=== PATIENT | female | born 1975 ===

== ENCOUNTER 2018-11-09 20:50 | Inpatient (IN) | payer OTHER ==
--- NOTE | 2018-11-10 02:07 | Emergency Department Report ---
ED Dysuria HPI - HPI Time Seen by Provider: 11/10/18 01:27 Duration: 1 Day Location of Discomfort: Flank Severity: Moderate Symptoms: Dysuria: No, Frequency: No, Suprapubic Pain: No, Flank Pain: Yes, Fever: Yes, Hematuria: No, Abdominal Pain: Yes, Previous UTI's: No Other History: Patient is a female who comes to the ER complaining of left flank pain and fever since yesterday. She did not take her temperature but her family reports that she has had chills. On arrival to the ER patient had a temperature of 100.2 she had a heart rate of 135 and her systolic pressure was in the 90s. Patient was later admitted to [facility] with the above findings and labs and CT have been ordered. Patient denies any medical history. She denies taking any medicines on a daily basis at home. She has no known drug allergies. Pale and diaphoretic on encounter in [facility]. ED Review of Systems ROS: Stated complaint: Other details as noted in HPI Comment: All other systems reviewed and negative ED Past Medical Hx - Past Medical History Previous Medical History?: No - Surgical History Hx Cholecystectomy: Yes Additional Surgical History: choley; previous lung surgery - Social History Smoking Status: Never Smoker Substance Use Type: None Dysuria Exam - Exam General: Vital signs noted. No distress. Alert and acting appropriately. WDWN patient . pale VS per RN flow sheet Alert and oriented to person, place and time. S1-S2. No S3 or S4. No systolic or diastolic murmur. No JVD. No pitting edema. Lungs clear to auscultation bilaterally anteriorly and posteriorly. Abdomen soft nontender bowel sounds x4 CVA tenderness on right Moves all extremities well. Mood and affect appropriate. Exam: Yes Moist Mucous Membranes, Yes CVA Tenderness (right), No Abdominal Tenderness, No Rigidity or Guarding ED Course - Reevaluation(s) Reevaluation #1: 11/10/18 triage vs 2049 97/55, 135,18, 100.2 motrin in triage denies home meds UA 0115 prot 100 blood mod leuk large cloudy 1.023 rbc 6 wbc 760 with clumping co flank pain 02/0811/10/18 04:05 HR now 90; pain improving, now 12/08- was 02/08 ED Medical Decision Making - Lab Data Result diagrams: 11/10/18 01:37 06/12/19 01:37 - Radiology Data Radiology results: report reviewed, image reviewed - Medical Decision Making 0134 urine preg neg Labs 11/10/18 11/10/18 01:37 01:37 WBC 24.2 H RBC 3.97 Hgb 11.5 Hct 33.9 MCV 85 MCH 29 MCHC 34 RDW 14.7 Plt Count 233 Sodium 131 L Potassium 3.4 L Chloride 92.4 L Carbon Dioxide 23 Anion Gap 19 BUN 21 H Creatinine 1.3 H Estimated GFR 45 BUN/Creatinine Ratio 16 Glucose 146 H Calcium 8.6 REFER TO DOWN TIME RECORDS FOR ADDITIONAL DOCUMENTATION [address] [facility]shaw [facility]- Dr Velasquez contacted for consultation. Will keep NPO- admit to [facility] Wang notified of patient. Pt is getting her 2nd l NS, she has had zofran and dilaudid for pain. - Differential Diagnosis ro pylo; ro k stone; ro acute abd Critical care attestation.: If time is entered above; I have spent that time in minutes in the direct care of this critically ill patient, excluding procedure time. ED Disposition Clinical Impression: PUNEET (acute kidney injury), Hypokalemia, Kidney stone, Pyelonephritis Disposition: -09 OP ADMIT IP TO THIS HOSP Is pt being admited?: Yes Does the pt Need Aspirin: No Condition: Stable Time of Disposition: 04:32
[2018-11-10 02:23] LABS: Calcium 8.6 mg/dL (8.4-10.2)
[2018-11-10 02:45] LABS: Hematocrit 33.9 % (30.3-42.9); Hemoglobin 11.5 gm/dl (10.1-14.3); Mean Corpuscular HGB Conc 34 % (30-34); Mean Corpuscular Volume 85 fl (79-97); Platelet Count 233 K/mm3 (140-440); Red Blood Count 3.97 M/mm3 (3.65-5.03); Red Cell Distribution Width 14.7 % (13.2-15.2)
[2018-11-10] MEDS ORDERED: TORADOL IV ONE (02:46)
[2018-11-10] MEDS ORDERED: ZOFRAN IV ONE ×2 (02:46→04:25)
[2018-11-10] MEDS ORDERED: DILAUDID IV ONE (02:46)
[2018-11-10] MEDS ORDERED: NACL 0.9% 1000 ML 1,000 ML IV ONE ×2 (02:46→04:28)
[2018-11-10] MEDS ORDERED: K-DUR PO ONE (04:25)
[2018-11-10] MEDS ORDERED: ROCEPHIN/NS 1 GM/50 ML 1 GM/50 ML BAG IV ONE (04:28)
--- NOTE | 2018-11-10 04:46 | Cat Scan Report ---
PROCEDURE: CT ABDOMEN PELVIS WO CON TECHNIQUE: Routine axial imaging was obtained of the abdomen and pelvis without oral or IV contrast. Sagittal and coronal reconstructions were reviewed. HISTORY: l side pain COMPARISONS: None FINDINGS: Imaging through the lung bases reveals opacification of the right hemithorax with shift of the heart toward the right side. The left lung is clear. The gallbladder has been removed. The biliary tree appears normal. The liver and pancreas appear norm al. The adrenal glands and spleen appear normal. There is moderate right-sided hydronephrosis with perinephric stranding secondary to a partially obst ructing 8.1 mm Stone just below the right renal pelvis. The left kidney shows no evidence of stones o r hydronephrosis. The bowel loops reveal multiple nondistended fluid-filled loops of ileum without tr ansition point. The colon appears normal. The appendix is not enlarged. There is no evidence of free fluid or adenopathy. In the pelvis the uterus and bladder appear normal. The skeletal structures do n ot show acute changes. IMPRESSION: Moderate right-sided hydronephrosis with perinephric stranding secondary to a partially obstructing 8 .1 mm Stone just below the right renal pelvis. No additional renal stones identified. No evidence of appendicitis. Cholecystectomy. Multiple nondistended fluid-filled loops of small bowel which may represent a reactive ileus. Opacification of the right hemithorax with chronic volume loss.. This document is electronically signed by Cameron Nelson MD., November 10 2018 04:44:14 AM ET
[2018-11-10 05:36] LABS: HCG Qualitative,Urine Negative (Negative)
[2018-11-10 05:37] LABS: Bacteria,Urine 2+ /HPF (Negative); Bilirubin,Urine NEG (Negative); Blood,Urine MOD (Negative); Color,Urine Amber (Yellow); Mucus,Urine FEW /HPF; Urobilinogen,Urine < 2.0 mg/dL (<2.0)
[2018-11-10] MEDS ORDERED: SODIUM CHLORIDE FLUSH SYRINGE 10 ML IV PRN (06:13)
[2018-11-10] MEDS ORDERED: TYLENOL PO PRN (06:13)
[2018-11-10] MEDS ORDERED: ZOFRAN IV PRN (06:13)
[2018-11-10 06:18] LABS: WBC,Urine > 182.0 /HPF (0.0-6.0)
--- NOTE | 2018-11-10 06:20 | History and Physical Report ---
History of Present Illness Date of examination: 11/10/18 Date of admission: November 10 2018 Chief complaint: Left flank pain due for 2 days associated with chills History of present illness: 43-year-old female with no significant past medical history comes in fo r fever and chills. Also left flank pain since yesterday. Pain is about 10 on a scale of 1-10. No similar prior episodes. Patient has dysuria. No history of kidney stones in the past. Pain is sharp in nature. No exacerbating or relieving factors. Past Medical History Previous Medical History?: No Surgical History Hx Cholecystectomy: Yes Additional Surgical History: choley; previous lung surgery Social History Smoking Status: Never Smoker Substance Use Type: None Family history unremarkable Review of Systems ROS: Stated complaint: Other details as noted in HPI Comment: All other systems reviewed and negative Medications and Allergies Allergies Allergy/AdvReac Type Severity Reaction Status Date / Time No Known Allergies Allergy Verified 11/10/18 06:16 Active Meds: Active Medications Acetaminophen (Tylenol) 650 mg PO Q4H PRN PRN Reason: Pain MILD(1-3)/Fever >100.5/LEE Famotidine (Pepcid) 20 mg IV BID JOSHUA Hydromorphone HCl (Dilaudid) 0.5 mg IV Q3H PRN PRN Reason: Pain , Severe (7-10) Dextrose/Sodium Chloride (D5ns) 1,000 mls @ 100 mls/hr IV DIRECT JOSHUA Ondansetron HCl (Zofran) 4 mg IV Q8H PRN PRN Reason: Nausea And Vomiting Sodium Chloride (Sodium Chloride Flush Syringe 10 Ml) 10 ml IV BID JOSHUA Sodium Chloride (Sodium Chloride Flush Syringe 10 Ml) 10 ml IV PRN PRN PRN Reason: LINE FLUSH Exam - Constitutional General appearance: Present: mild distress, well-nourished - EENT Eyes: Present: PERRL ENT: hearing intact, clear oral mucosa - Neck Neck: Present: supple, normal ROM - Respiratory Respiratory effort: normal Respiratory: bilateral: CTA - Cardiovascular Heart rate: 80 Rhythm: regular Heart Sounds: Present: S1 & S2. Absent: rub, click - Extremities Extremities: no ischemia, pulses intact, pulses symmetrical, No edema Peripheral Pulses: within normal limits - Abdominal General gastrointestinal: Present: soft, non-tender, non-distended, normal bowel sounds Female genitourinary: Present: normal - Rectal Rectal Exam: deferred - Integumentary Integumentary: Present: clear, warm, dry - Musculoskeletal Musculoskeletal: gait normal, strength equal bilaterally - Psychiatric Psychiatric: appropriate mood/affect, intact judgment & insight - Neurologic Neurologic: CNII-XII intact, moves all extremities - Allied Health Allied health notes reviewed: nursing, case management Results - Labs CBC & Chem 7: 11/10/18 01:37 11/10/18 01:37 Labs: Laboratory Last Values WBC 24.2 K/mm3 (4.5-11.0) H 11/10/18 01:37 RBC 3.97 M/mm3 (3.65-5.03) 11/10/18 01:37 Hgb 11.5 gm/dl (10.1-14.3) 11/10/18 01:37 Hct 33.9 % (30.3-42.9) 11/10/18 01:37 MCV 85 fl (79-97) 11/10/18 01:37 MCH 29 pg (28-32) 11/10/18 01:37 MCHC 34 % (30-34) 11/10/18 01:37 RDW 14.7 % (13.2-15.2) 11/10/18 01:37 Plt Count 233 K/mm3 (140-440) 11/10/18 01:37 Sodium 131 mmol/L (137-145) L 11/10/18 01:37 Potassium 3.4 mmol/L (3.6-5.0) L 11/10/18 01:37 Chloride 92.4 mmol/L (98-107) L 11/10/18 01:37 Carbon Dioxide 23 mmol/L (22-30) 11/10/18 01:37 19 mmol/L 11/10/18 01:37 BUN 21 mg/dL (7-17) H 11/10/18 01:37 1.3 mg/dL (0.7-1.2) H 11/10/18 01:37 Estimated GFR 45 ml/min 11/10/18 01:37 16 % 11/10/18 01:37 Glucose 146 mg/dL (65-100) H 11/10/18 01:37 Calcium 8.6 mg/dL (8.4-10.2) 11/10/18 01:37 Ur Reducing Substances Not Reportable 11/10/18 02:27 Neg (Negative) 11/10/18 02:27 Not Reportable 11/10/18 02:27 15.0 /HPF (0.0-6.0) 11/10/18 02:27 U Epithel Cells (Auto) 9.0 /HPF (0-13.0) 11/10/18 02:27 Urine HCG, Qual Negative (Negative) 11/10/18 02:27 Short CBC 11/10/18 Range/Units 01:37 WBC 24.2 H (4.5-11.0) K/mm3 Hgb 11.5 (10.1-14.3) gm/dl Hct 33.9 (30.3-42.9) % Plt Count 233 (140-440) K/mm3 BMP 11/10/18 01:37 Sodium 131 L Potassium 3.4 L Chloride 92.4 L Carbon Dioxide 23 BUN 21 H Creatinine 1.3 H Glucose 146 H Calcium 8.6 Urine 11/10/18 Range/Units 02:27 Urine Color Alanis (Yellow) Urine pH 5.0 (5.0-7.0) Ur Specific [place] 1.023 (1.003-1.030) Urine Protein 100 mg/dl (Negative) mg/dL Urine Glucose (UA) Neg (Negative) mg/dL - Imaging and Cardiology CT scan - abdomen: report reviewed Imaging and Cardiology: CT abdomen IMPRESSION: Moderate right-sided hydronephrosis with perinephric stranding secondary to a partially obstructing 8.1 mm Stone just below the right renal pelvis. No additional renal stones identified. No evidence of appendicitis. Cholecystectomy. Multiple nondistended fluid-filled loops of small bowel which may represent a reactive ileus. Opacification of the right hemithorax with chronic volume loss.. Assessment and Plan Advance Directives: Yes (full code) VTE prophylaxis?: Chemical Plan of care discussed with patient/family: Yes - Patient Problems (1) SIRS (systemic inflammatory response syndrome) Current Visit: Yes Status: Acute Plan to address problem: Clinical picture consistent with systemic inflammatory response syndrome Patient initiated on IV fluids and IV Rocephin pending urine cultures and blood cultures (2) Kidney stone Current Visit: Yes Status: Acute Plan to address problem: Large right kidney stone--8.1 mm causing hydronephrosis on the right side Urology consulted and informed Dr. Velasquez to see the patient this morning and may take her over to the opera ting room (3) Pyelonephritis Current Visit: Yes Status: Acute Plan to address problem: possible pyelonephritis Patient has flank pain on the left side but the kidney stone is on the right side (4) PUNEET (acute kidney injury) Current Visit: Yes Status: Acute Plan to address problem: IV fluids for now ATN versus vasomotor nephropathy (5) Hypokalemia Current Visit: Yes Status: Acute Plan to address problem: Supplemented (6) DVT prophylaxis Current Visit: Yes Status: Acute Plan to address problem: on SCDs and GI prophylaxis
[2018-11-10] MEDS ORDERED: KCL 10MEQ/100ML 10 MEQ/100 ML BAG IV SCH (07:00)
[2018-11-10] MEDS: DILAUDID IV PRN ×3 (09:15→23:56)
[2018-11-10] MEDS ORDERED: TYLENOL ONE (09:36)
[2018-11-10] MEDS: ROCEPHIN/NS 2 GM/100 ML 2 GM/100 ML BAG IV SCH (09:47)
--- NOTE | 2018-11-10 10:18 | Consultation ---
History of Present Illness - Reason for Consult Consult date: 11/10/18 right nephrolithiasis - History of Present Illness Patient presenting with a history of flank pain was noted to have an brendan roximately 8 mm stone at the UVJ. She has mild right hydronephrosis. 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) Social history: no significant social history Family history: no significant family history Medications and Allergies Allergies Allergy/AdvReac Type Severity Reaction Status Date / Time No Known Allergies Allergy Verified 11/10/18 06:16 Active Meds: Active Medications Acetaminophen (Tylenol) 650 mg PO Q4H PRN PRN Reason: Pain MILD(1-3)/Fever >100.5/LEE Last Admin: 11/10/18 09:35 Dose: 650 mg Documented by: Famotidine (Pepcid) 20 mg IV BID JOSHUA Hydromorphone HCl (Dilaudid) 0.5 mg IV Q3H PRN PRN Reason: Pain , Severe (7-10) Last Admin: 11/10/18 09:15 Dose: 0.5 mg Documented by: Dextrose/Sodium Chloride (D5ns) 1,000 mls @ 100 mls/hr IV DIRECT JOSHUA Ceftriaxone Sodium (Rocephin/Ns 2 Gm/100 Ml) 2 gm in 100 mls @ 200 mls/hr IV Q24HR JOSHUA; Protocol Last Admin: 11/10/18 09:47 Dose: Not Given Documented by: Ondansetron HCl (Zofran) 4 mg IV Q8H PRN PRN Reason: Nausea And Vomiting Sodium Chloride (Sodium Chloride Flush Syringe 10 Ml) 10 ml IV BID JOSHUA Sodium Chloride (Sodium Chloride Flush Syringe 10 Ml) 10 ml IV PRN PRN PRN Reason: LINE FLUSH Review of Systems ROS unobtainable: due to mental status Exam - Constitutional Vitals: Temp Pulse Resp BP Pulse Ox 103.2 F H 121 H 20 123/68 11/10/18 09:32 11/10/18 09:03 11/10/18 09:03 11/10/18 09:03 General appearance: Present: no acute distress - EENT Eyes: Present: EOM intact ENT: hearing intact - Neck Neck: Present: supple, normal ROM - Respiratory Respiratory effort: normal - Extremities Extremities: no ischemia - Abdominal General gastrointestinal: Present: deferred - Rectal Rectal Exam: deferred - Psychiatric Psychiatric: cooperative Results - Labs CBC & Chem 7: 11/10/18 01:37 11/10/18 01:37 Labs: Abnormal lab results 11/10/18 11/10/18 11/10/18 Range/Units 01:37 01:37 02:27 WBC 24.2 H (4.5-11.0) K/mm3 Sodium 131 L (137-145) mmol/L Potassium 3.4 L (3.6-5.0) mmol/L Chloride 92.4 L (98-107) mmol/L BUN 21 H (7-17) mg/dL Creatinine 1.3 H (0.7-1.2) mg/dL Glucose 146 H (65-100) mg/dL Urine WBC (Auto) > 182.0 H (0.0-6.0) /HPF - Imaging and Cardiology CT scan - abdomen: image reviewed CT scan - chest: image reviewed Assessment and Plan Patient with mild right hydronephrosis and minimal amounts of perinephric stranding. The patient will be scheduled for placement of a right nephrostomy tube with samples of the patient's urine sent for culture. The patient will need to be evaluated for her right endobronchial mass with complete atelectasis of her right lung additionally, CT scan demonstrates a fluid collection at the right lung base that appears to be loculated.
[2018-11-10] MEDS ORDERED: VERSED ONE (10:48)
[2018-11-10] MEDS ORDERED: SUBLIMAZE ONE (10:48)
[2018-11-10] MEDS ORDERED: XYLOCAINE 2% INFILTRATI ONE (10:49)
[2018-11-10] MEDS ORDERED: LEVAQUIN 500MG/100ML 500 MG/100 ML BAG IV ONE (10:49)
[2018-11-10] MEDS ORDERED: NACL 0.9% 500 ML IR ONE (10:49)
--- NOTE | 2018-11-10 12:00 | Operative Report ---
Operative Report Operative Report: Exam: Ultrasound and fluoroscopic guided placement of nephrostomy tube Clinical indication: Patient with the partially obstructing right UPJ stone Date: 11/10/2018 Procedure: Following an explanation of the risks, benefits and alternatives; written informed consent was obtained through the aid of an transformer coil winder. The patient was brought to the fluoroscopy suite and placed in prone position on the examination table. Initial ultrasound evaluation of the back demonstrated only minimal right hydronephrosis. The patient's right back and flank were prepped and draped in usual sterile fashion. 1% lidocaine was used for anesthesia. Under ultrasound guidance, a 15 cm 21-gauge needle was advanced into a posterior inferior calyx. A 0.018 guidewire was then advanced into the renal pelvis. The needle was exchanged for an active state transition dilator. Contrast was then injected through the dilator which documented filling of the renal calyces. Additionally, the nonobstructing stone is identified at the UPJ. The 0.018 guidewire was exchanged for a 0.035 guidewire which was advanced to the bladder. The transition dilator was exchanged for a vertebral catheter which was advanced over the guidewire to the bladder. Contrast was injected to document appropriate positioning. Following serial dilation over the guidewire under fluoroscopy, an 8 Israeli nephrostomy tube was advanced over the guidewire under fluoroscopy. The pigtail was positioned in the central aspect of the renal pelvis and the guidewire and trocar removed. Contrast was gently injected to document appropriate positioning which again demonstrated a nearly completely decompressed collecting system. Lavage of the collecting system was performed and sent for laboratory analysis. The catheter was securely fastened at the skin surface using 2-[address] to dependent drainage. Sterile dressings were then applied. The patient tolerated the procedure well. There were no immediate post procedure complications. Conscious sedation was performed under the guidance of radiologic nursing. Continuous cardiopulmonary monitoring was utilized. Impression: Ultrasound and fluoroscopic guided placement of a 8 afghan nephrostomy tube in the right renal pelvis. Only mild right hydronephrosis and a nonobstructing UPJ stone are identified. Samples of the urine were collected and sent for laboratory analysis.
[2018-11-10] MEDS ORDERED: NACL 0.9% 500 ML 500 ML IV ONE (12:44)
[2018-11-10] MEDS: D5NS 1,000 ML IV SCH (13:07)
[2018-11-10] MEDS: PEPCID IV SCH ×2 (13:08→22:12)
--- NOTE | 2018-11-10 13:08 | Consultation ---
History of Present Illness Consult date: 11/10/18 Reason for consult: other (ileus) Requesting physician: MILDRED DOBSON Chief complaint: back pain, N/V. - History of present illness History of present illness: 43yo F presents with 3 day history of "pain behind the stomach", N/V. No urinary symptoms. Would like to have something to eat and drink now. We are asked to see her due to appearance of ileus on CT. Passing flatus and having BMs as of yesterday. 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) Past Surgical History: cholecystectomy (open), (times 2) Social history: no significant social history Family history: no significant family history Medications and Allergies Allergies Allergy/AdvReac Type Severity Reaction Status Date / Time No Known Allergies Allergy Verified 11/10/18 06:16 Active Meds: Active Medications Acetaminophen (Tylenol) 650 mg PO Q4H PRN PRN Reason: Pain MILD(1-3)/Fever >100.5/LEE Last Admin: 11/10/18 09:35 Dose: 650 mg Documented by: Famotidine (Pepcid) 20 mg IV BID JOSHUA Hydromorphone HCl (Dilaudid) 0.5 mg IV Q3H PRN PRN Reason: Pain , Severe (7-10) Last Admin: 11/10/18 09:15 Dose: 0.5 mg Documented by: Dextrose/Sodium Chloride (D5ns) 1,000 mls @ 100 mls/hr IV DIRECT JOSHUA Ceftriaxone Sodium (Rocephin/Ns 2 Gm/100 Ml) 2 gm in 100 mls @ 200 mls/hr IV Q24HR JOSHUA; Protocol Last Admin: 11/10/18 09:47 Dose: Not Given Documented by: Sodium Chloride (Nacl 0.9% 500 Ml) 500 mls @ 999 mls/hr IV ONCE ONE Stop: 11/10/18 13:14 Ondansetron HCl (Zofran) 4 mg IV Q8H PRN PRN Reason: Nausea And Vomiting Sodium Chloride (Sodium Chloride Flush Syringe 10 Ml) 10 ml IV BID JOSHUA Sodium Chloride (Sodium Chloride Flush Syringe 10 Ml) 10 ml IV PRN PRN PRN Reason: LINE FLUSH Review of Systems - Constitutional fever, chills, no chronic pain - Cardiovascular no chest pain, no shortness of breath - Gastrointestinal abdominal pain, nausea, vomiting, dyspepsia/bloating, no hematemesis, no coffee ground emesis, no BRBPR, no melena, no hematochezia, no belching - Genitourinary Genitourinary: no pelvic pain, no dysuria, no urinary frequency, no hematuria Exam Vital Signs Pulse Resp BP 121 H 20 123/68 11/10/18 09:03 11/10/18 09:03 11/10/18 09:03 - General physical appearance Positive: well developed, well nourished, no distress, no pain, other (pleasant. Nigerien speaking woman) - Eyes Positive: normal occular movement - Respiratory Positive: normal expansion, normal respiratory effort, clear to auscultation - Cardiovascular Rhythm: regular - Abdomen Abdomen: Present: soft, tender (mild - generalized), bowel sounds hypoactive, surgical scars (upper midline and lower midline - well healed). Absent: distended, masses, guarding, rigid Hernia: none - Integumentary no rash, no growths, no abnormal pigmentation - Neurologic Neurologic: alert and oriented to time, place and person, motor strength and sensation are grossly intact - Psychiatric Psychiatric: appropriate mood/affect, intact judgment & insight, cooperative Results - Labs 11/10/18 01:37 11/10/18 01:37 Abnormal lab results 11/10/18 11/10/18 11/10/18 Range/Units 01:37 01:37 02:27 WBC 24.2 H (4.5-11.0) K/mm3 Sodium 131 L (137-145) mmol/L Potassium 3.4 L (3.6-5.0) mmol/L Chloride 92.4 L (98-107) mmol/L BUN 21 H (7-17) mg/dL Creatinine 1.3 H (0.7-1.2) mg/dL Glucose 146 H (65-100) mg/dL Urine WBC (Auto) > 182.0 H (0.0-6.0) /HPF Diabetes panel 11/10/18 11/10/18 Range/Units 01:37 01:37 Sodium 131 L (137-145) mmol/L Potassium 3.4 L (3.6-5.0) mmol/L Chloride 92.4 L (98-107) mmol/L Carbon Dioxide 23 (22-30) mmol/L BUN 21 H (7-17) mg/dL Creatinine 1.3 H (0.7-1.2) mg/dL Glucose 146 H (65-100) mg/dL Hemoglobin A1c 5.2 (4-6) % Calcium 8.6 (8.4-10.2) mg/dL Calcium panel 11/10/18 Range/Units 01:37 Calcium 8.6 (8.4-10.2) mg/dL Pituitary panel 11/10/18 Range/Units 01:37 Sodium 131 L (137-145) mmol/L Potassium 3.4 L (3.6-5.0) mmol/L Chloride 92.4 L (98-107) mmol/L Carbon Dioxide 23 (22-30) mmol/L BUN 21 H (7-17) mg/dL Creatinine 1.3 H (0.7-1.2) mg/dL Glucose 146 H (65-100) mg/dL Calcium 8.6 (8.4-10.2) mg/dL Adrenal panel 11/10/18 Range/Units 01:37 Sodium 131 L (137-145) mmol/L Potassium 3.4 L (3.6-5.0) mmol/L Chloride 92.4 L (98-107) mmol/L Carbon Dioxide 23 (22-30) mmol/L BUN 21 H (7-17) mg/dL Creatinine 1.3 H (0.7-1.2) mg/dL Glucose 146 H (65-100) mg/dL Calcium 8.6 (8.4-10.2) mg/dL - Imaging CT scan - abdomen: report reviewed, image reviewed CT scan - pelvis: report reviewed, image reviewed Assessment and Plan - Patient Problems (1) Ileus Current Visit: Yes Status: Acute Plan to address problem: Pt stable. Pt appears to be primarily symptomatic from his urinary issues. At this point, I think it would be reasonable to try a clear liquid diet. If there are no procedures planned, try a clear liquid diet today. We will advance diet as tolerated. Will follow along. Please call with questions. time=30min
--- NOTE | 2018-11-10 14:45 | Consultation ---
History of Present Illness - Reason for Consult Consult date: 11/10/18 - History of Present Illness NEW PT TO [facility] 43-year-old female with no significant past medical history comes in for fever and chills. Also left flank pain since yesterday. Pain is about 10 on a scale of 1-10. No similar prior episodes. Patient has dysuria. No history of kidney stones in the past. Pain is sharp in nature. No exacerbating or relieving factors CT abdomen IMPRESSION: Moderate right-sided hydronephrosis with perinephric stranding secondary to a partially obstructing 8.1 mm Stone just below the right renal pelvis. No additional renal stones identified. No evidence of appendicitis. Cholecystectomy. Multiple nondistended fluid-filled loops of small bowel which may represent a reactive ileus. Opacification of the right hemithorax with chronic volume loss.. Ultrasound and fluoroscopic guided placement of nephrostomy tube (DR. 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) Social history: no significant social history Family history: no significant family history Medications and Allergies Allergies Allergy/AdvReac Type Severity Reaction Status Date / Time No Known Allergies Allergy Verified 11/10/18 06:16 Active Meds: Active Medications Acetaminophen (Tylenol) 650 mg PO Q4H PRN PRN Reason: Pain MILD(1-3)/Fever >100.5/LEE Last Admin: 11/10/18 09:35 Dose: 650 mg Documented by: Famotidine (Pepcid) 20 mg IV BID JOSHUA Last Admin: 11/10/18 13:08 Dose: 20 mg Documented by: Hydromorphone HCl (Dilaudid) 0.5 mg IV Q3H PRN PRN Reason: Pain , Severe (7-10) Last Admin: 11/10/18 09:15 Dose: 0.5 mg Documented by: Dextrose/Sodium Chloride (D5ns) 1,000 mls @ 100 mls/hr IV DIRECT JOSHUA Last Admin: 11/10/18 13:07 Dose: 100 mls/hr Documented by: Ceftriaxone Sodium (Rocephin/Ns 2 Gm/100 Ml) 2 gm in 100 mls @ 200 mls/hr IV Q24HR [facility]; Protocol Last Admin: 11/10/18 09:47 Dose: Not Given Documented by: Ondansetron HCl (Zofran) 4 mg IV Q8H PRN PRN Reason: Nausea And Vomiting Sodium Chloride (Sodium Chloride Flush Syringe 10 Ml) 10 ml IV BID JOSHUA Sodium Chloride (Sodium Chloride Flush Syringe 10 Ml) 10 ml IV PRN PRN PRN Reason: LINE FLUSH Exam - Constitutional Vitals: Temp Pulse Resp BP Pulse Ox 98.4 F 97 H 19 88/48 91 11/10/18 12:23 11/10/18 12:23 11/10/18 12:23 11/10/18 12:23 11/10/18 12:23 Results - Labs CBC & Chem 7: 11/10/18 01:37 11/10/18 01:37 Labs: Abnormal lab results 11/10/18 11/10/18 11/10/18 Range/Units 01:37 01:37 02:27 WBC 24.2 H (4.5-11.0) K/mm3 Sodium 131 L (137-145) mmol/L Potassium 3.4 L (3.6-5.0) mmol/L Chloride 92.4 L (98-107) mmol/L BUN 21 H (7-17) mg/dL Creatinine 1.3 H (0.7-1.2) mg/dL Glucose 146 H (65-100) mg/dL Urine WBC (Auto) > 182.0 H (0.0-6.0) /HPF
--- NOTE | 2018-11-10 15:47 | Event Note ---
Date: 11/10/18 Patient seen and examined with RN 43-year-old female with no prior medical history presented with abdominal pain CT abdomen and pelvis showed Moderate right-sided hydronephrosis with perinephric stranding secondary to a partially obstructing 8.1 mm Stone just below the right renal pelvis. UA suggestive of UTI . Status post nephrostomy tube placed today Start on clear liquid diet, monitor BMP, continue antibiotic for UTI and sepsis Possible planned to discharge home with nephrostomy tube tomorrow & abx of choice for at least 2 wks Will need outpt ESWL with normal WBC Plan of care discussed with the patient and her family with language line
--- NOTE | 2018-11-10 20:26 | Event Note ---
Date: 11/10/18 No complaint of chest pain,shortness of breath or cough. O2 saturation 97%. Patient not complaining any pulmonary problems. Signing off the case. If you need any pulmonary help call us back. Tigre Schmidt.
[2018-11-10] MEDS: SODIUM CHLORIDE FLUSH SYRINGE 10 ML IV SCH (22:12)
[2018-11-11] MEDS: D5NS 1,000 ML IV SCH ×3 (00:02→19:20)
[2018-11-11] MEDS: DILAUDID IV PRN ×3 (06:20→19:19)
[2018-11-11 07:30] LABS: Basophils % (Auto) 0.1 % (0.0-1.8); Hematocrit 29.1 % (30.3-42.9); Hemoglobin 9.9 gm/dl (10.1-14.3); Lymphocytes # (Auto) 0.9 K/mm3 (1.2-5.4); Lymphocytes % (Auto) 7.7 % (13.4-35.0); Mean Corpuscular HGB Conc 34 % (30-34); Mean Corpuscular Volume 85 fl (79-97); Monocytes # (Auto) 0.7 K/mm3 (0.0-0.8); Monocytes % (Auto) 5.5 % (0.0-7.3); Platelet Count 168 K/mm3 (140-440); Red Blood Count 3.43 M/mm3 (3.65-5.03); Red Cell Distribution Width 14.9 % (13.2-15.2)
[2018-11-11 07:58] LABS: Alanine Aminotransferase 21 units/L (7-56); Albumin 2.7 g/dL (3.9-5); BUN/Creatinine Ratio 15; Blood Urea Nitrogen 12 mg/dL (7-17); Calcium 7.8 mg/dL (8.4-10.2); Hemolysis Index 2
[2018-11-11] MEDS: ROCEPHIN/NS 2 GM/100 ML 2 GM/100 ML BAG IV SCH (09:53)
[2018-11-11] MEDS: PEPCID IV SCH ×2 (09:54→22:27)
[2018-11-11] MEDS: SODIUM CHLORIDE FLUSH SYRINGE 10 ML IV SCH ×2 (09:54→10:00)
[2018-11-11] MEDS ORDERED: K-DUR PO ONE (10:00)
--- NOTE | 2018-11-11 13:14 | Progress Note ---
Assessment and Plan - Patient Problems (1) Ileus Current Visit: Yes Status: Acute Plan to address problem: Pt appears ill today. I think this is related to urosepsis. I think is also causing her N/V/D. Would continue clears as the patient desires. Will follow along. Please call with questions. Time=10min Subjective Date of service: 11/11/18 Patient Reports: Positive: still having pain (in back), diarrhea, nausea, vomiting, other (tolerated clears well last night. slept well. Began to feel ill after breakfast this AM. ) Objective Vital Signs - 12hr 11/11/18 11/11/18 11/11/18 04:59 06:28 12:15 Temperature 99.2 F 99.8 F H Pulse Rate 111 H 101 H Respiratory 20 16 Rate Blood Pressure 110/64 121/61 O2 Sat by Pulse 89 94 Oximetry - General physical appearance other (appears ill, coughing at times) - Respiratory normal expansion, normal respiratory effort - Abdomen soft, not tender, bowel sounds hypoactive (few sounds), not distended, not guarding, not rigid, surgical scars (well healed) - Integumentary no rash, no growths, no abnormal pigmentation - Labs 11/11/18 06:56 11/11/18 06:56 Diabetes panel 11/11/18 Range/Units 06:56 Sodium 135 L (137-145) mmol/L Potassium 3.5 L (3.6-5.0) mmol/L Chloride 100.0 (98-107) mmol/L Carbon Dioxide 22 (22-30) mmol/L BUN 12 (7-17) mg/dL Creatinine 0.8 (0.7-1.2) mg/dL Glucose 154 H (65-100) mg/dL Calcium 7.8 L (8.4-10.2) mg/dL AST 27 (5-40) units/L ALT 21 (7-56) units/L Alkaline Phosphatase 66 (35-129) units/L Total Protein 6.8 (6.3-8.2) g/dL Albumin 2.7 L (3.9-5) g/dL Calcium panel 11/11/18 Range/Units 06:56 Calcium 7.8 L (8.4-10.2) mg/dL Albumin 2.7 L (3.9-5) g/dL Pituitary panel 11/11/18 Range/Units 06:56 Sodium 135 L (137-145) mmol/L Potassium 3.5 L (3.6-5.0) mmol/L Chloride 100.0 (98-107) mmol/L Carbon Dioxide 22 (22-30) mmol/L BUN 12 (7-17) mg/dL Creatinine 0.8 (0.7-1.2) mg/dL Glucose 154 H (65-100) mg/dL Calcium 7.8 L (8.4-10.2) mg/dL Adrenal panel 11/11/18 Range/Units 06:56 Sodium 135 L (137-145) mmol/L Potassium 3.5 L (3.6-5.0) mmol/L Chloride 100.0 (98-107) mmol/L Carbon Dioxide 22 (22-30) mmol/L BUN 12 (7-17) mg/dL Creatinine 0.8 (0.7-1.2) mg/dL Glucose 154 H (65-100) mg/dL Calcium 7.8 L (8.4-10.2) mg/dL Total Bilirubin 0.40 (0.1-1.2) mg/dL AST 27 (5-40) units/L ALT 21 (7-56) units/L Alkaline Phosphatase 66 (35-129) units/L Total Protein 6.8 (6.3-8.2) g/dL Albumin 2.7 L (3.9-5) g/dL
--- NOTE | 2018-11-11 14:56 | Progress Note ---
Assessment and Plan Sepsis with UTI, POA - positive UTI, PUNEET, fever, leukocytosis on admission - cont abx, follow urine Cx Hydronephrosis due to right kidney stone - Status post nephrostomy tube placed 11/10/18 - pt to d/c home with PCN tube Ilius, surgery consulted - clear liquid diet for now, iv fluid, as needed antiemetics PUNEET, due to vasomotor nephropathy Hyponatremia, due to dehydration, cont iv fluid Hypokalemia, due to n/v GI loss, replete and monitor Dvt Px, SCD Brief History: 43-year-old female with no prior medical history presented with abdominal pain CT abdomen and pelvis showed Moderate right-sided hydronephrosis with perinephric stranding secondary to a partially obstructing 8.1 mm Stone just below the right renal pelvis. UA suggestive of UTI . Status post nephrostomy tube placed 11/10/18 Start on clear liquid diet, monitor BMP, continue antibiotic for UTI and sepsis Radiological data: CT abdomen: Moderate right-sided hydronephrosis with perinephric stranding secondary to a partially obstructing 8.1 mm Stone just below the right renal pelvis. No additional renal stones identified. No evidence of appendicitis. Cholecystectomy. Multiple nondistended fluid-filled loops of small bowel which may represent a reactive ileus. Opacification of the right hemithorax with chron ic volume loss.. Ultrasound and fluoroscopic guided placement of nephrostomy tube (DR. CROW----11-10-18) Hospitalist Physical exam: GENERAL: well-developed and well-nourished female lying on bed appeared to be in no discomfort. HEENT: Normocephalic. Atraumatic. No conjunctival congestion or icterus. Patient has moist mucous membranes. NECK: Supple. Trachea midline. CHEST/LUNGS: Clear to auscultated bilaterally, breathing nonlabored. No wheezes crackles or rhonchi. HEART/CARDIOVASCULAR: Regular in rate and rhythm. S1 and S2 positive. ABDOMEN: Abdomen is soft, nontender. Patient has normal bowel sounds. SKIN: There is no rash. Warm and dry. NEURO: No focal motor deficit. Follows command. MUSCULOSKELETAL: No joint effusion or tenderness. EXTRIMITY: No edema, no cyanosis or clubbing. PSYCH: Cooperative. Subjective Date of service: 11/11/18 Interval history: Patient seen and examined. Medical records and medication list reviewed. No acute event overnight noted by the RN. Patient continued complaints of nausea and vomiting. Discussed plan of care at bedside with patient. Objective - Constitutional Vitals: Vital Signs - 12hr 11/11/18 11/11/18 11/11/18 04:59 06:28 12:15 Temperature 99.2 F 99.8 F H Pulse Rate 111 H 101 H Respiratory 20 16 Rate Blood Pressure 110/64 121/61 O2 Sat by Pulse 89 94 Oximetry - Labs CBC & Chem 7: 11/12/18 05:09 11/12/18 05:09 Labs: Abnormal lab results 11/11/18 11/11/18 Range/Units 06:56 06:56 WBC 12.1 H (4.5-11.0) K/mm3 RBC 3.43 L (3.65-5.03) M/mm3 Hgb 9.9 L (10.1-14.3) gm/dl Hct 29.1 L (30.3-42.9) % Lymph % (Auto) 7.7 L (13.4-35.0) % Lymph # 0.9 L (1.2-5.4) K/mm3 Seg Neutrophils % 86.7 H (40.0-70.0) % Seg Neutrophils # 10.4 H (1.8-7.7) K/mm3 Sodium 135 L (137-145) mmol/L Potassium 3.5 L (3.6-5.0) mmol/L Glucose 154 H (65-100) mg/dL Calcium 7.8 L (8.4-10.2) mg/dL Albumin 2.7 L (3.9-5) g/dL
[2018-11-12] MEDS: DILAUDID IV PRN (04:17)
[2018-11-12] MEDS: SODIUM CHLORIDE FLUSH SYRINGE 10 ML IV SCH ×2 (04:26→09:06)
[2018-11-12 06:11] LABS: Basophils % (Auto) 0.2 % (0.0-1.8); Hematocrit 29.9 % (30.3-42.9); Hemoglobin 10.3 gm/dl (10.1-14.3); Lymphocytes # (Auto) 1.2 K/mm3 (1.2-5.4); Mean Corpuscular HGB Conc 35 % (30-34); Mean Corpuscular Volume 84 fl (79-97); Monocytes # (Auto) 0.6 K/mm3 (0.0-0.8); Monocytes % (Auto) 6.4 % (0.0-7.3); Platelet Count 183 K/mm3 (140-440); Red Blood Count 3.55 M/mm3 (3.65-5.03); Red Cell Distribution Width 14.4 % (13.2-15.2)
[2018-11-12 06:33] LABS: BUN/Creatinine Ratio 11; Blood Urea Nitrogen 8 mg/dL (7-17); Calcium 8.4 mg/dL (8.4-10.2); Hemolysis Index 1
[2018-11-12] MEDS ORDERED: K-DUR PO ONE (09:00)
[2018-11-12] MEDS: ROCEPHIN/NS 2 GM/100 ML 2 GM/100 ML BAG IV SCH (09:06)
[2018-11-12] MEDS: PEPCID IV SCH (09:07)
[2018-11-12] MEDS: KCL 10MEQ/100ML 10 MEQ/100 ML BAG IV SCH ×2 (11:16→12:30)
--- NOTE | 2018-11-12 12:24 | Discharge Summary ---
Providers - Providers Date of Admission: 11/10/18 10:28 Date of discharge: 11/12/18 Attending physician: NGHIA MATIAS 11/10/18 06:13 Consult to Physician [CONS] Routine Comment: Consulting Provider: ALEENA PLATT Physician Instructions: Reason For Exam: right kidney stone 11/10/18 07:01 Consult to Physician [CONS] Routine Comment: Consulting Provider: MITZY PEREZ Physician Instructions: Reason For Exam: right lung collapse 11/10/18 07:02 Consult to Physician [CONS] Routine Comment: Consulting Provider: SAMSON DAS Physician Instructions: Reason For Exam: mild ileus [facility] Condition: Stable Hospital course: Brief History: 43-year-old female with no prior medical history presented with abdominal pain CT abdomen and pelvis showed Moderate right-sided hydronephrosis with perinephric stranding secondary to a partially obstructing 8.1 mm Stone just below the right renal pelvis. UA suggestive of UTI . Status post nephrostomy tube placed 11/10/18 Abdominal x-ray also showed highly ilius, surgery consulted and recommended medical management, Advance diet as tolerated, placed on antibiotic for UTI and sepsis, culture Grew Proteus. Patient will complete antibiotic regimen as outpatient and will follow up with urology outpatient for further management. She was discharged home in stable condition. Treated with Radiological data: CT abdomen: Moderate right-sided hydronephrosis with perinephric stranding secondary to a partially obstructing 8.1 mm Stone just below the right renal pelvis. No additional renal stones identified. No evidence of appendicitis. Cholecystectomy. Multiple nondistended fluid-filled loops of small bowel which may represent a reactive ileus. Opacification of the right hemithorax with chronic volume loss.. Ultrasound and fluoroscopic guided placement of nephrostomy tube (DR. CROW----11-10-18) Discharge diagnosis: Sepsis with UTI, POA - positive UTI, PUNEET, fever, leukocytosis on admission - cont abx, Urine Cx grew Proteus Hydronephrosis due to right kidney stone - Status post nephrostomy tube placed 11/10/18 - pt to d/c home with PCN tube - We'll do further follow-up with the urologist outpatient for further man agement Ilius, surgery consulted, required no surgical intervention, resolved with medical management - carlos placed on ar liquid diet and advance as tolerated, also placed on iv fluid, as needed antiemetic PUNEET, due to vasomotor nephropathy, resolved with IV fluid Hyponatremia, due to dehydration, improved. Iv fluid Hypokalemia, due to n/v GI loss, repleted and monitored Dvt Px, SCD Hospitalist Physical exam: GENERAL: well-developed and well-nourished female lying on bed appeared to be in no discomfort. HEENT: Normocephalic. Atraumatic. No conjunctival congestion or icterus. Patient has moist mucous membranes. NECK: Supple. Trachea midline. CHEST/LUNGS: Clear to auscultated bilaterally, breathing nonlabored. No wheezes crackles or rhonchi. HEART/CARDIOVASCULAR: Regular in rate and rhythm. S1 and S2 positive. ABDOMEN: Abdomen is soft, nontender. Patient has normal bowel sounds. SKIN: There is no rash. Warm and dry. NEURO: No focal motor deficit. Follows command. MUSCULOSKELETAL: No joint effusion or tenderness. EXTRIMITY: No edema, no cyanosis or clubbing. PSYCH: Cooperative. Disposition: DC/TX-06 HOME UNDER HOME [facility] Time spent for discharge: 34 minutes Core Measure Documentation - Palliative Care Palliative Care/ Comfort Measures: Not Applicable - Core Measures Any of the following diagnoses?: none Exam - Constitutional Vitals: Temp Pulse Resp BP Pulse Ox 99.1 F 109 H 18 145/77 84 11/11/18 23:27 11/11/18 23:27 11/11/18 23:27 11/11/18 23:24 11/11/18 23:27 Plan Activity: advance as tolerated Weight Bearing Status: Weight Bear as Tolerated Diet: low fat Follow up with: JESUS MANUEL NUÑEZ MD [Primary Care Provider] - 3-5 Days ALEENA PLATT MD [Staff Physician] - 7 Days Prescriptions: Amoxicillin/Potassium Clav [Augmentin 875-125 Tablet] 1 each PO BID #24 tablet oxyCODONE /ACETAMINOPHEN [Percocet 5/325] 1 tab PO Q6HR PRN #10 tablet PRN Reason: Pain
--- NOTE | 2018-11-12 12:54 | XRay Report ---
ABDOMEN RADIOGRAPHS INDICATION: Ileus. COMPARISON: None similar. FINDINGS: Frontal abdominal radiographs demonstrate a right percutaneous nephrostomy tube, new since 11/10/2018 CT in this patient with a known 8mm calculus at or just past the right UPJ. Nonobstructive bowel gas pattern without other definite focal suspicious calcifications or pneumatosis noted. Right hemidiaphragm again asymmetrically elevated than the left and incompletely imaged. Intact bones. CONCLUSION: New right nephrostomy tube placement since 2 days ago with few other findings, as above. Please correlate. Thank you for the opportunity to participate in this patient's care.
[2018-11-12 17:51] VITALS: BP 127/72
== END 2018-11-12 18:00 | disposition home health service (06) | DRG 871 ==
LOC: ED 20:50 → 3A 11-10 05:15 → OBSVTOIN 11-10 10:28
PROVIDERS: ADMIT Internal Medicine; ATTEND Internal Medicine
PROC: 0T9330Z Drainage of Right Kidney Pelvis with Drainage Device, Percutaneous Approach (ICD-10-PCS; principal; 2018-11-10)
DX: A41.9 Sepsis, unspecified organism (principal); N17.0 Acute kidney failure with tubular necrosis; J98.19 Other pulmonary collapse; K56.7 Ileus, unspecified; J98.11 Atelectasis; E87.1 Hypo-osmolality and hyponatremia; N13.6 Pyonephrosis; E87.6 Hypokalemia; Z90.49 Acquired absence of other specified parts of digestive tract
CPT/HCPCS: 36415; 50432; 74018; 74176; 80048; 80053; 81001; 81025; 83036; 85025; 85027; 87076; 87116; 87186; 96374; 96375; 99285; G0378; C1729; C1769; J0696; J1170; J1885; J1956; J2250; J2405; J3010; J3480; J7030; J7040; J7042; Q9967

== ENCOUNTER 2020-11-25 21:32 | Emergency (ER) | payer SELFPAY ==
[2020-11-25] MEDS ORDERED: SODIUM CHLORIDE 0.9% 1000 ML IV SOLN IV ONE (22:53)
[2020-11-25] MEDS ORDERED: ACETAMINOPHEN 500 MG TAB PO ONE (22:54)
--- NOTE | 2020-11-25 23:00 | Emergency Department Report ---
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 Patient presented to the ER complaining of fever, shortness of breath, cough and difficulty urinating. Patient stated that all her symptoms started yesterday. Patient denied any sick contact. Patient did not receive a COVID-19 vaccine yet. Patient found to be afebrile with a temperature of 102.2 and tachycardic. Sepsis protocol immediately initiated. Patient received normal saline. - Related Data Previous Rx's Medication Instructions Recorded Last Taken Type Amoxicillin/Potassium Clav 1 each PO BID #24 tablet 11/12/18 Unknown Rx [Augmentin 875-125 Tablet] oxyCODONE /ACETAMINOPHEN [Percocet 1 tab PO Q6HR PRN #10 tablet 11/12/18 Unknown Rx 5/325] Allergies Allergy/AdvReac Type Severity Reaction Status Date / Time No Known Allergies Allergy Verified 11/10/18 06:16 ED Review of Systems ROS: Stated complaint: ABD PAIN/CHILLS/HARDIK Other details as noted in HPI Comment: All other systems reviewed and negative Constitutional: chills, fever Respiratory: cough, shortness of breath, SOB with exertion, SOB at rest, wheezing Cardiovascular: palpitations. denies: chest pain Gastrointestinal: denies: abdominal pain, nausea, vomiting Musculoskeletal: denies: back pain Neurological: denies: headache, weakness, numbness, paresthesias ED Past Medical Hx - Past Medical History Previous Medical History?: Yes Hx Congestive Heart Failure: No Hx Diabetes: No Hx Asthma: No Hx COPD: No Hx HIV: No - Surgical History Past Surgical History?: Yes Hx Cholecystectomy: Yes (2007) Additional Surgical History: choley; previous lung surgery - Social History Smoking Status: Never Smoker - Medications Home Medications: Home Medications Medication Instructions Recorded Confirmed Last Taken Type Amoxicillin/Potassium Clav 1 each PO BID #24 tablet 11/12/18 Unknown Rx [Augmentin 875-125 Tablet] oxyCODONE /ACETAMINOPHEN [Percocet 1 tab PO Q6HR PRN #10 tablet 06/14/19 Unknown Rx 5/325] ED Physical Exam - General Limitations: No Limitations General appearance: alert, in distress - Head Head exam: Present: atraumatic, normocephalic, normal inspection - Eye Eye exam: Present: normal appearance, PERRL - ENT ENT exam: Present: mucous membranes dry - Neck Neck exam: Present: normal inspection, full ROM. Absent: tenderness, meningismus - Respiratory Respiratory exam: Present: respiratory distress, rales, decreased breath sounds. Absent: wheezes, rhonchi, accessory muscle use, prolonged expiratory - Cardiovascular Cardiovascular Exam: Present: tachycardia - GI/Abdominal GI/Abdominal exam: Present: soft, normal bowel sounds. Absent: distended, tenderness, guarding, rebound, rigid, organomegaly, mass, bruit, pulsatile mass, hernia - Extremities Exam Extremities exam: Present: normal inspection, full ROM, normal capillary refill. Absent: tenderness, pedal edema, joint swelling, calf tenderness - Back Exam Back exam: Present: normal inspection, full ROM. Absent: CVA tenderness (R), CVA tenderness (L) - Neurological Exam Neurological exam: Present: alert, oriented X3, CN II-XII intact, reflexes normal. 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 Patient presented to the ER complaining of fever, shortness of breath, cough and difficulty urinating. Patient stated that all her symptoms started yesterday. Patient denied any sick contact. Patient did not receive a COVID-19 vaccine y et. Patient found to be afebrile with a temperature of 102.2 and tachycardic. Sepsis protocol immediately initiated. Patient received normal saline. 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 CT abdomen and pelvis showed 6 mm right obstructive ureteral stone with severe hydronephrosis. Urine is strongly positive for UTI. I discussed the patient with Dr. Fisher, she accepted the patient to be transferred to [facility] for further management. Critical Care Time: Yes Critical care time in (mins) excluding proc time.: 30 Critical care attestation.: If time is entered above; I have spent that time in minutes in the direct care of this critically ill patient, excluding procedure time. ED Disposition Clinical Impression: Pyelonephritis, Urinary tract obstruction by kidney stone, Hydronephrosis, UTI (urinary tract infection) Disposition: DC/TX-70 ANOTHER TYPE [facility] Is pt being admited?: No Condition: Stable
[2020-11-25 23:25] LABS: Hemoglobin 13.9 gm/dl (10.1-14.3); Mean Corpuscular HGB Conc 36 % (30-34); Mean Corpuscular Volume 86 fl (79-97); Platelet Count 260 K/mm3 (140-440); Red Blood Count 4.55 M/mm3 (3.65-5.03); Red Cell Distribution Width 13.3 % (13.2-15.2)
[2020-11-25 23:37] LABS: INR 1.05 (0.87-1.13)
[2020-11-25 23:39] LABS: Partial Thromboplastin Time 29.2 Sec. (24.2-36.6)
[2020-11-25 23:41] LABS: Alanine Aminotransferase 24 units/L (7-56); Blood Urea Nitrogen 14 mg/dL (7-17); Calcium 8.9 mg/dL (8.4-10.2); Hemolysis Index 1
[2020-11-25] MEDS ORDERED: PIPERACILLIN/TAZOBACTAM 3.375 3.375 GM/50 ML BAG IV ONE (23:45)
[2020-11-25 23:48] LABS: BUN/Creatinine Ratio 20
--- NOTE | 2020-11-26 00:02 | XRay Report ---
Chest single view INDICATION: Dyspnea IMPRESSION: Complete opacification of the right hemithorax consistent with volume loss atelectasis.. The left lung is clear. Signer Name: Viktor Saenz MD Signed: 11/25/2020 11:58 PM Workstation Name: [id number]
--- NOTE | 2020-11-26 00:50 | Cat Scan Report ---
CT abdomen pelvis w con INDICATION / CLINICAL INFORMATION: abdominal pain. TECHNIQUE: Routine CT abdomen pelvis without contrast All CT scans at this location are performed using CT dose reduction for ALARA by means of automated exposure control. COMPARISON: None available. 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 6 x 4 mm calculus within the right proximal ureter at the right ureteropelvic junction. The liver, sp evan, pancreas adrenal glands and left kidney appear unremarkable. Urinary bladder is unremarkable. U terus is unremarkable. The appendix is unremarkable. No free pelvic fluid or pelvic adenopathy. IMPRESSION: 6 x 4 mm calculus identified at the right ureteropelvic junction causing severe right-bulmaro ed hydronephrosis. Signer Name: Viktor Saenz MD Signed: 11/26/2020 12:45 AM Workstation Name: [id number]
[2020-11-26 02:23] LABS: Bacteria,Urine 1+ /HPF (Negative); Bilirubin,Urine NEG (Negative); Blood,Urine MOD (Negative); Color,Urine Yellow (Yellow); Mucus,Urine FEW /HPF; Urobilinogen,Urine < 2.0 mg/dL (<2.0)
[2020-11-26 02:25] LABS: WBC,Urine > 182.0 /HPF (0.0-6.0)
[2020-11-26 02:48] LABS: C-Reactive Protein 23.6 mg/dL (0.00-1.30)
[2020-11-26] MEDS ORDERED: MORPHINE 4 MG/1 ML INJ IV ONE (04:01)
[2020-11-26] MEDS ORDERED: ONDANSETRON 4 MG/2 ML INJ IV ONE (04:02)
[2020-11-26] MEDS ORDERED: SODIUM CHLORIDE 0.9% 1000 ML 1,000 ML IV ONE (04:04)
[2020-11-26 04:22] LABS: Total Cells Counted 200
[2020-11-26 04:23] LABS: Anisocytosis 1+; Band Neutrophils # (Manual) 0.2 K/mm3; Eosinophils % (Manual) 0.5 % (0.0-4.3); Monocytes % (Manual) 3.5 % (0.0-7.3); Platelet Estimate Consistent w Auto
[2020-11-26] MEDS ORDERED: HYDROmorphone 1 MG/1 ML INJ IV ONE (06:20)
[2020-11-26 06:33] VITALS: BP 102/44
--- NOTE | 2020-11-27 11:12 | Electrocardiograph Report ---
[facility] Test Date: 2020-11-26 Test Time: 02:05:28 Pat Name: JADE PINTO Department: Room: Gender: F [employer]: : 1975 Requested By: CHRISTINA FRANCIS Order Number: [id number] Reading MD: Piyush Billings Measurements Intervals Lucas Rate: 86 P: 55 ND: 162 QRS: 51 QRSD: 72 T: 32 QT: 358 QTc: 429 Interpretive Statements Sinus rhythm No previous ECG available for comparison Electronically Signed On 11-27-2020 11:11:42 EDT by Piyush Billings
== END 2020-11-26 07:00 | disposition other institution (70) ==
LOC: ED 21:32
DX: N12 Tubulo-interstitial nephritis, not specified as acute or chronic (principal); N39.0 Urinary tract infection, site not specified; N13.2 Hydronephrosis with renal and ureteral calculous obstruction; Z90.49 Acquired absence of other specified parts of digestive tract; Z98.890 Other specified postprocedural states; Z79.899 Other long term (current) drug therapy
CPT/HCPCS: 36415; 71045; 74177; 80053; 81001; 82140; 82728; 82947; 83615; 84145; 84484; 84703; 85007; 85025; 85379; 85610; 85730; 86140; 93005; 96361; 96365; 96366; 96375; 99291; J1170; J2270; J2405; J2543; J7030; Q9967; 99285